=== PATIENT | female | born 1960 | race Caucasian/White ===

== ENCOUNTER 2024-01-14 21:23 | Emergency (ER) | payer MEDICARE, BC, SELFPAY ==
[2024-01-14 21:29] VITALS: BP 166/77; PULSE 94; TEMP 36.3; O2SAT 97; BMI 35.9
--- NOTE | 2024-01-14 21:41 | ED.GENADULT ---
HPI - General Adult General Date Seen: 01/14/24 Chief complaint: Chest Pain Stated complaint: Tightness in her chest Time Seen by Provider: 01/14/24 21:41 History of Present Illness HPI narrative: Pleasant 63-year-old female accompanied to the ER larry by her for evaluation of substernal chest pain and burning. She says she is generally healthy and does not have any known past medical history, but her also notes that she has not seen a doctor for a checkup in more than 2 decades. She does not take any medications. No supplements. No allergies. Nonsmoker. She has been experiencing chest discomfort that started this afternoon around 1:00 p.m. while she was at work. She does note that she has of a lot of stress at work today because her sister (co-worker) is out and her is preparing for a work related Trip. She was dealing with some on [employer] people as well. She did not eat lunch. At roughly 1:00 p.m. her chest started bothering her and felt achy and somewhat Freida. She is not really sure how long it lasted this afternoon but it was definitely gone before she went for a walk around 430. She started having recurring burning achy chest discomfort that started roughly around 7:00 p.m. around the time she was about to or starting to eat dinner. It got worse after dinner. It is now more bothersome. It is located in the center of her chest. Does not radiate down her arms or to her back or to her abdomen. No other symptoms. No shortness of breath. No palpitations. No nausea. No syncope. She also notes that she feels very anxious and she wonders if she might be having a panic attack. She is also worried because she had a friend scientology who recently had a heart attack. She is also worried because she has noted a painful lump on her right breast for the past couple of months ever since she bumped it. She has an appointment to see a doctor for that on Thursday. This would be her 1st doctor's appointment in quite a few years. No recent leg swelling. No recent travel. She has no known history of hypertension but blood pressure is elevated here. She has not been check for cholesterol. No history of DVT PE. No history of cancer. Related Data Home Medications Medication Instructions Recorded Confirmed No Known Home Medications 01/14/24 01/14/24 Allergies Allergy/AdvReac Type Severity Reaction Status Date / Time No Known Drug Allergies Allergy Verified 01/14/24 21:29 [facility] Social History Smoking Status: Never smoker How often do you have a drink containing alcohol: never AUDIT-C Alcohol total score: 0 Non-prescribed substance use: denies use Exam Narrative: Exam Narrative: Constitutional: Appears well-developed and well-nourished. Alert. Conversant but anxious. Non toxic. HENT: Head: Atraumatic. Nose: Nose normal. Mouth/Throat: Oral mucosa is clear and moist. no trismus. Pharynx normal. Tonsils symmetric. No tonsillar enlargement, erythema, or exudate. Eyes: Conjunctivae normal. EOM normal. Pupils equal, round, and reactive to light. No scleral icterus. Neck: Normal range of motion. Neck supple. No tracheal deviation present. No JVD Cardiovascular: Normal rate, regular rhythm. No gallop. No friction rub. No murmur heard. Symmetric radial and PT artery pulses Pulmonary/Chest: Effort normal. No stridor. No respiratory distress. No wheezes. No rales. No rhonchi . No tenderness. Abdominal: Soft. Bowel sounds normal. No distension. No mass. No tenderness. No rebound. No guarding. Breast: Patient does have a roughly 2 x 3 cm area of firm tissue on the right upper lateral quadrant of her breast. No surrounding erythema. No puckering of the skin Musculoskeletal: RUE: Normal range of motion. No tenderness. No deformity LUE: Normal range of motion. No tenderness. No deformity RLE: Normal range of motion. No edema. No tenderness. No deformity LLE: Normal range of motion. No edema. No tenderness. No deformity Lymph: No cervical adenopathy. Neurological: Alert and oriented to person, place, and time. Normal strength. CN II-VII intact. No sensory deficit. GCS eye subscore is 4. GCS verbal subscore is 5. GCS motor subscore is 6. Normal coordination Skin: Skin is warm and dry. No rash noted. No pallor. Normal capillary refill. Psychiatric: Normal mood. Normal affect. Const: Vital Signs, click to edit/add: Vital Signs - 24 hr 01/14/24 21:29 01/14/24 22:27 01/14/24 22:31 Temperature 97.4 F L Pulse Rate 85 87 Pulse Rate [Pulse Oximeter] 94 Respiratory Rate 16 16 Blood Pressure 154/89 H 142/84 H Blood Pressure [Ri ght Upper Arm] 166/77 H Pulse Oximetry 97 98 94 Oxygen Delivery Me thod Room Air 01/14/24 23:02 01/14/24 23:32 01/15/24 00:01 Temperature Pulse Rate 78 83 78 Pulse Rate [Pulse Oximeter] Respiratory Rate 16 16 16 Blood Pressure 156/81 H 153/82 H 145/79 H Blood Pressure [Ri ght Upper Arm] Pulse Oximetry 98 95 96 Oxygen Delivery Me thod 01/15/24 00:01 01/15/24 00:32 01/15/24 01:01 Temperature Pulse Rate 78 83 72 Pulse Rate [Pulse Oximeter] Respiratory Rate 18 16 16 Blood Pressure 145/79 H 133/77 137/72 Blood Pressure [Ri ght Upper Arm] Pulse Oximetry 96 96 98 Oxygen Delivery Me thod Course Course ED Course: Recheck-feeling better. Blood pressure down to 137/72. Much more relaxed and calm. Vital Signs Vital signs: Initial Vital Signs Temperature 97.4 F L 01/14/24 21:29 Temperature Source Temporal Artery Scan 01/14/24 21:29 Pulse Rate 94 01/14/24 21:29 Pulse Rhythm Regular 01/14/24 21:29 Blood Pressure 166/77 H 01/14/24 21:29 Blood Pressure Mean 106 H 01/14/24 21:29 Blood Pressure Position Sitting 01/14/24 21:29 Pulse Oximetry 97 01/14/24 21:29 Oxygen Delivery Method Room Air 01/14/24 21:29 Vital Signs Temperature 97.4 F L 01/14/24 21:29 Pulse Rate 94 01/14/24 21:29 Blood Pressure 166/77 H 01/14/24 21:29 Pulse Oximetry 97 01/14/24 21:29 Oxygen Delivery Method Room Air 01/14/24 21:29 Temperature 97.4 F L 01/14/24 21:29 Pulse Rate 72 01/15/24 01:01 Respiratory Rate 16 01/15/24 01:01 Blood Pressure 137/72 01/15/24 01:01 Pulse Oximetry 98 01/15/24 01:01 Oxygen Delivery Method Room Air 03/14/24 21:29 Medications Administered Medications: Generic Name Dose Route Start Last Admin Trade Name Denys PRN Reason Stop Dose Admin Nitroglycerin 0.4 mg 01/14/24 22:14 01/14/24 22:31 Nitroglycerin 0.4 Mg Tab.Subl SUBLINGUAL 0.4 mg Q5M PRN Administration Discontinued Medications Generic Name Dose Route Start Last Admin Trade Name Denys PRN Reason Stop Dose Admin Aspirin 162 mg 01/14/24 21:46 01/14/24 22:30 Aspirin 81 Mg Tab.Chew PO 01/14/24 21:47 162 mg ONCE ONE Administration Sodium Chloride 1,000 mls @ 1,000 mls/hr 01/14/24 23:24 01/14/24 23:27 0.9 % Sodium Chloride 1000 Ml IV 01/15/24 00:23 Infused .Q1H SOLA Infusion Lorazepam 1 mg 01/14/24 22:14 01/14/24 22:30 Lorazepam 2 Mg/Ml Inj IVP 01/14/24 22:15 1 mg ONCE ONE Administration Medical Decision Making [facility] Narrative Medical decision making narrative: This patient presents to the ER today for evaluation of chest pain. Differential was broad. No evidence of palpitations, syncope or other cardiac dysrhythmia. We considered possible ACS, however workup with EKG and troponin is negative. HEART score is 1. Given time since onset of symptoms, we did obtain 2 hour delta enzymes which are both normal. I do not think the patient needs to be admitted for further sets of enzymes. EKG shows no evidence for pericarditis. Clinical presentation not suggestive of myocarditis. Chest x-ray shows no evidence for pneumonia, pneumothorax, pulmonary edema, pleural effusion, rib fracture, cardiomegaly. Mediastinum is normal on the x-ray. The patient has no ripping or tearing pain through to the back and has symmetric pulses on exam, no other acute neuro findings so I doubt aortic dissection. Risk of radiation and contrast exposure would outweigh the benefit of CT angiogram. We considered PE for this patient. D-dimer is normal. No wheezing or bronchospasm to suggest COPD/asthma. No signs of chest wall cellulitis, shingles, injury. With reasonable clinical confidence, I think the patient is safe for outpatient follow up. Discussed return precautions. Questions answered. Patient voices comfort with the plan. Incidentally she mentioned to me that she has had a firm area in her right upper outer breast for the past couple of months. She thinks is probably a bruise because she did bump that area. She has an appointment to see a doctor on Thursday for that and I advised her to keep that appointment. She may need a mammogram and further workup for that breast lump. Recommend outpatient follow-up for her hypertension and to get other risk factor evaluation. Lab Data Labs: Lab Results 01/14/24 01/15/24 Range/Units 22:18 00:20 WBC 8.04 (4.50-11.00) K/uL RBC 4.55 (4.00-5.20) m/uL Hgb 13.5 (12.0-16.0) gm/dL Hct 41.1 (33.0-51.0) % MCV 90 (80-100) fL MCH 30 (26-34) pg MCHC 33 (32-36) gm/dL RDW Coeff of Edith 13.1 (11.5-15.5) % Plt Count 263 (140-440) K/uL Neut % (Auto) 73.9 H (42.0-72.0) % Lymph % (Auto) 17.5 L (20-44) % [place]orte % (Auto) 6.2 (0.0-11.0) % Eos % (Auto) 1.7 (0.0-7.0) % Baso % (Auto) 0.6 (0.0-3.0) % Neut # (Auto) 5.90 (1.7-7.0) K/uL Lymph # (Auto) 1.40 (0.90-2.90) K/uL [place] # (Auto) 0.50 (0.00-0.90) K/UL Eos # (Auto) 0.14 (0.00-0.50) K/uL Baso # (Auto) 0.05 (0.00-0.30) K/uL Abs Immat Gran (auto) 0.01 (0.00-0.30) K/uL Imm/Tot Granulo (auto) 0.1 % D-Dimer Quant (PE/DVT) 0.22 (0.00-0.50) ug/ml Sodium 140 (135-149) mmol/L Potassium 3.3 L (3.6-5.1) mmol/L Chloride 104 (96-114) mmol/L Carbon Dioxide 29 (20-32) mmol/L Anion Gap 7 (7-15) mEq/L BUN 20 (7-30) mg/dL Creatinine 0.8 (0.5-1.5) mg/dL Estimated Creat Clear 60.65 Estimated GFR 82 ml/min Glucose 137 H (60-115) mg/dL Calcium 9.6 (8.4-10.6) mg/dL Troponin I < 0.01 L < 0.01 L (0.01-0.04) ng/mL Imaging Data Chest x-ray: Attestation: I have reviewed the pertinent imaging results. Radiologist's impression: IMPRESSION: Patchy right lower lobe airspace opacity could represent early pneumonia in the correct clinical setting. ECG Data Attestation: I personally reviewed and interpreted this ECG as follows: Interpretation: Normal sinus rhythm rate 82 ND 166. No pathologic delta waves. QRS axis normal axis. No Q-waves. ST segment/T wave: No ST segment elevation or depression. Nonspecific T-wave flattening in lead 3, AVF, V1 QTc: 408 Discharge Plan Discharge Clinical Impression: Chest pain Patient Disposition: Home, Self-Care Condition: Stable Instructions: Chest Pain (DC) Additional Instructions: As we discussed, please follow-up with her doctor on Thursday for recheck. Talk to your doctor about your chest pain. Ask your doctor to arrange a stress test for your heart. Ask them to recheck your blood pressure. If it is still elevated, you may need to start some blood pressure medications. In the meantime, if you have any worsening episodes of chest pain or more frequent episodes of chest pain, or any other problems, come back to the emergency department right away to be rechecked. Prescriptions: No Action No Known Home Medications Follow Up/Referrals: Provider,Not a Local [Primary Care Provider] - Stand Alone Forms: iRewardChart Info Instructions
--- NOTE | 2024-01-14 21:46 | XR_ITS ---
Patient: JULIANA KOTHARI Facility:?[facility] Patient ID:?[id number] Site Patient ID:?[id number]. Site :?1960 Study:?XRay-Chest 2 VIEWS-01/14/2024 11:06:17 PM Ordering Physician:AMY Final Report: INDICATION: Chest tightness. TECHNIQUE: Chest 2 views. COMPARISON: None. FINDINGS: Cardiovascular and mediastinum: Heart size and vasculature are normal in caliber and appearance. Lungs and pleural spaces: Patchy right lower lobe airspace opacity. The remainder of the lungs are clear. No pleural effusion or pneumothorax. Bones and soft tissues: Unremarkable for age. IMPRESSION: Patchy right lower lobe airspace opacity could represent early pneumonia in the correct clinical setting. Dictated by Cezar Leong MD @ 01/14/2024 11:44:32 PM Signed by:?Cezar Leong MD @01/14/2024 11:44:32 PM (Electronic Signature)
[2024-01-14] MEDS: 0.9 % SODIUM CHLORIDE 1000 ml 1,000 ML IV (22:26)
[2024-01-14 22:27] VITALS: BP 154/89; PULSE 85; RESP 16; O2SAT 98
[2024-01-14] MEDS: LORazepam 2 MG/ML inj 1 MG IVP (22:30)
[2024-01-14] MEDS: ASPIRIN 81 MG TAB.CHEW 162 MG PO (22:30)
[2024-01-14 22:31] VITALS: BP 142/84; PULSE 87; RESP 16; O2SAT 94
[2024-01-14] MEDS: NITROGLYCERIN 0.4 MG TAB.SUBL SUBLINGUAL (22:31)
[2024-01-14 23:02] VITALS: BP 156/81; PULSE 78; RESP 16; O2SAT 98
[2024-01-14 23:26] LABS: Basophils Absolute Auto 0.05 K/uL (0.00-0.30); Basophils Percent Auto 0.6 % (0.0-3.0); Eosinophils Absolute Auto 0.14 K/uL (0.00-0.50); Eosinophils Percent Auto 1.7 % (0.0-7.0); Hematocrit 41.1 % (33.0-51.0); Hemoglobin* 13.5 gm/dL (12.0-16.0); Immature Granulocytes Abs Auto 0.01 K/uL (0.00-0.30); Immature Granulocytes Pct Auto 0.1 %; Lymphocytes Percent Auto 17.5 % (20-44); Mean Corpuscular HGB Conc 33 gm/dL (32-36); Mean Corpuscular Hemoglobin 30 pg (26-34); Mean Corpuscular Volume 90 fL (80-100); Monocytes Percent Auto 6.2 % (0.0-11.0); Neutrophils Percent Auto 73.9 % (42.0-72.0); Platelet Count* 263 K/uL (140-440); RDW Coefficient of Variation % 13.1 % (11.5-15.5); Red Blood Count 4.55 m/uL (4.00-5.20); White Blood Count* 8.04 K/uL (4.50-11.00)
[2024-01-14 23:28] LABS: Slide Review Reflex No
[2024-01-14 23:32] VITALS: BP 153/82; PULSE 83; RESP 16; O2SAT 95
[2024-01-14 23:36] LABS: Chloride* 104 mmol/L (96-114); Potassium* 3.3 mmol/L (3.6-5.1); Sodium* 140 mmol/L (135-149)
[2024-01-14 23:39] LABS: Anion Gap 7 mEq/L (7-15); Carbon Dioxide* 29 mmol/L (20-32); Creatinine* 0.8 mg/dL (0.5-1.5); Est. Creatinine Clearance* 60.65; Estimated Glomerular Filt Rate 82 ml/min
[2024-01-14 23:40] LABS: Blood Urea Nitrogen* 20 mg/dL (7-30); Calcium* 9.6 mg/dL (8.4-10.6); Glucose* 137 mg/dL (60-115)
[2024-01-14 23:44] LABS: D Dimer Quantitative* 0.22 ug/ml (0.00-0.50)
[2024-01-14 23:55] LABS: Troponin I* < 0.01 ng/mL (0.01-0.04)
[2024-01-15 00:01] VITALS: BP 145/79; PULSE 78; RESP 16; RESP 18; O2SAT 96
[2024-01-15 00:32] VITALS: BP 133/77; PULSE 83; RESP 16; O2SAT 96
[2024-01-15 00:54] LABS: Troponin I* < 0.01 ng/mL (0.01-0.04)
[2024-01-15 01:01] VITALS: BP 137/72; PULSE 72; RESP 16; O2SAT 98
== END 2024-01-15 01:24 | disposition home or self-care (01) ==
PROVIDERS: Emergency Provider Emergency Medicine
DX: R07.9 Chest pain, unspecified (principal)
CPT/HCPCS: 36415; 71046; 80048; 84484; 85025; 85379; 93005; 96374; 99284; 99285; A9270; J2060; J7030

== ENCOUNTER 2024-02-05 07:55 | Outpatient (CLI) | payer MEDICARE, BC, SELFPAY ==
--- NOTE | 2024-02-05 08:15 | US_ITS ---
Patient: JULIANA KOTHARI Facility:?[facility] Patient ID:?[id number] Site Patient ID:?[id number]. Site :?1960 Study:?US-Breast Procedure DR HANSON TO READ-02/05/2024 8:47:50 AM Ordering Physician:?DESTINY GARCIA Final Report: ULTRASOUND-GUIDED BREAST BIOPSY AND POST-BIOPSY DIGITAL MAMMOGRAM FOR BIOPSY MARKER PLACEMENT CLINICAL HISTORY: Indeterminate solid and cystic lesion. COMPARISON STUDIES: 01/19/2024. TECHNIQUE: Real-time ultrasound with image documentation was used for targeting the breast lesion. Core biopsy specimens were obtained using an automated gun with a 18- gauge biopsy needle. Post-biopsy CC and ML digital mammograms were obtained to document position of the biopsy marker. CONSENT and TIME OUT: The procedure, risks, and alternatives were explained to the patient and a consent was signed. [place] Protocol was followed including pre-procedure verification that relevant information/documentation was available, reviewed and properly matched to the patient; consent accurate and complete; and equipment and supplies available. Time Out was conducted just prior to starting procedure to verify the four required elements: patient identity, correct side/site marked (if applicable), procedure, relevant images/results properly labeled and displayed (if applicable). PROCEDURE: The patient was positioned supine on the ultrasound table. The breast was prepped with ChloraPrep. 8 cc of 1 percent lidocaine used for local anesthesia. Core samples were obtained. A sterile metal biopsy clip was placed percutaneously to katheryn the lesion position within the breast. The specimens were placed in 10% formalin and sent to the pathology department. Pressure was held on the biopsy site until all bleeding subsided. The skin incision was closed with Steri-Strips. An ice pack was positioned over the biopsy site. Post-biopsy instructions were reviewed with the patient, and a written copy was given to her. LATERALITY: Right breast. LESION: Solid and cystic mass measuring 4.9 x 3.1 x 3.2 cm at 10 o`clock 4 cm from the nipple. SUSPICION FOR MALIGNANCY: Intermediate. NUMBER OF SAMPLES: 6. BIOPSY CLIP SHAPE: Oval. PROXIMITY OF CLIP TO TARGET: Within the solid portion of the lesion. IMPRESSION: Ultrasound-guided breast biopsy. When the pathology report is available, an addendum to this report will be made. 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 This is concordant. This lesion has p63 positivity which is generally sensitive for metaplastic breast carcinoma. Surgical referral recommended. This is concordant. Dictated by: Fidencio Hanson MD @02/10/2024 8:25:15 AM / NORM:jj Signed by:?Fidencio Hanson MD @02/10/2024 12:07:12 PM (Electronic Signature)
--- NOTE | 2024-02-05 09:00 | MM_ITS ---
Patient: JULIANA KOTHARI Facility:?[facility] Patient ID:?[id number] Site Patient ID:?[id number]. Site :?1960 Study:?XRay-Breast Right 2D post clip placement-02/05/2024 8:57:40 AM Ordering Physician:key Final Report: PLEASE SEE RIGHT BREAST ULTRASOUND-GUIDED BIOPSY OF SAME DAY. CRL:mak JUAN PABLO/Dictated by: Fidencio Patel MD @ 02/05/2024 1:10:00 PM Signed by:?Fidencio Patel MD @02/05/2024 3:12:23 PM (Electronic Signature)
--- NOTE | 2024-02-09 15:01 | ONC.NURNOTE ---
Reviewed pathology results with pt via phone. BNN to review with Dr. Patel in AM and update pt with next steps; pt is emotional and verbalizes understanding.
== END 2024-02-05 07:56 | disposition home or self-care (01) ==
LOC: US 07:56
PROVIDERS: Visit Provider Student in an Organized Health Care Education/Training Program
DX: N60.01 Solitary cyst of right breast (principal); C50.911 Malignant neoplasm of unspecified site of right female breast; R92.8 Other abnormal and inconclusive findings on diagnostic imaging of breast
CPT/HCPCS: 19083; 77065; 88305; 88341; 88342; 88360; A4648; A4649

== ENCOUNTER 2024-03-17 09:30 | Emergency (ER) | payer MEDICARE, BC, SELFPAY ==
[2024-03-17 09:40] VITALS: BP 177/95; PULSE 71; RESP 20; TEMP 35.9; O2SAT 98; BMI 27.9
--- NOTE | 2024-03-17 09:52 | CT_ITS ---
Patient: JULIANA KOTHARI Facility:?[facility] Patient ID:?[id number] Site Patient ID:?[id number]. Site :?1960 Study:?CT-Abdomen/Pelvis W/ 98CC ISOVUE 370-03/17/2024 11:17:46 AM Ordering Physician:ELEUTERIO Final Report: INDICATION: Left-sided abdominal pain TECHNIQUE: CT of the abdomen and pelvis was obtained with 98 mL of Isovue 370 intravenous contrast. Please note that all CT scans at this facility use dose modulation, iterative reconstruction, and/or weight-based dosing when appropriate to reduce radiation dose to as low as reasonably achievable. COMPARISON: None. FINDINGS: Lower thorax: 6.0 x 4.2 centimeter rim enhancing right breast collection (2/6) with associated metallic marker. Liver and biliary tree: Subcentimeter hypoattenuating lesions are too small to characterize and are favored to represent cysts. Gallbladder: Cholelithiasis. Spleen: Normal. Pancreas: Normal. Adrenal glands: Normal. Kidneys and ureters: Moderate left hydroureteronephrosis with 3 millimeter obstructing calculus at the left ureterovesical junction (2/149). Moderate left perinephric fat stranding. Gastrointestinal tract: Moderate descending and sigmoid colonic diverticulosis without CT evidence of acute diverticulitis. Normal appendix. No evidence of bowel obstruction. Small hiatal hernia. Peritoneal cavity: Normal. Bladder: Normal. Pelvic organs: Fibroid uterus. Vasculature: Mild calcification. Lymph nodes: Normal. Abdominal wall: Trace fat containing periumbilical hernia. Musculoskeletal: Mild multilevel degenerative changes. IMPRESSION: 1. Moderate left hydroureteronephrosis with 3 millimeter obstructing calculus at the left ureterovesical junction. 2. 6.0 x 4.2 centimeter rim enhancing right breast collection with associated metallic markers; this likely corresponds to reported malignancy on biopsy 02/05/2024. 3. Fibroid uterus. Consider pelvic ultrasound for further evaluation as clinically indicated. Please note that all CT scans at this facility use dose modulation, iterative reconstruction, and/or weight-based dosing when appropriate to reduce radiation dose to as low as reasonably achievable. Dictated by Navid Cote MD @ 03/17/2024 11:31:02 AM Signed by:?Navid Cote MD @03/17/2024 11:31:02 AM (Electronic Signature)
--- NOTE | 2024-03-17 10:02 | ED.GENADULT ---
HPI - General Adult General Date Seen: 03/17/24 Chief complaint: Abdominal Pain Stated complaint: abdominal pain/ tight chest Time Seen by Provider: 03/17/24 09:41 Source: patient Mode of arrival: ambulatory Limitations: no limitations History of Present Illness HPI narrative: Patient is a 63-year-old female presenting to the emergency department for left-sided abdominal pain and chest pain. She states she was doing well this morning but then as the day was going on she noticed sudden sharp left-sided abdominal pain. Pain is not improved at all. She is not taking anything for pain yet. Had a bowel movement this morning that was normal and has no previous abdominal surgeries. This morning she also ate and drink without issues. She is also complaining about a band of tightness in her chest just below her breasts the go all way across. She states she has had this pain for several months now and it does not seem much different today. Initially was not nausea but while speaking to a she suddenly became very nauseated. Has not had any emesis yet. Denies fevers, chills, sick contacts, weakness, numbness, headache, vision changes. Does have some lightheadedness. Did get diagnosed with right-sided breast cancer it was start treatment in April. They also saw an abnormality on her uterus. Related Data Previous Rx's Medication Instructions Recorded ketorolac 10 mg tablet 10 mg PO Q8H #15 tabs 03/17/24 ondansetron 4 mg disintegrating 4 mg PO Q6H #20 tabs 03/17/24 tablet oxycodone 5 mg tablet 5 mg PO Q6H PRN pain #12 tabs 03/17/24 tamsulosin 0.4 mg capsule (Flomax) 0.4 mg PO DAILY #14 caps 03/17/24 Allergies Allergy/AdvReac Type Severity Reaction Status Date / Time No Known Drug Allergies Allergy Verified 03/17/24 11:08 Review of Systems Status of ROS: Reports: 10 or more systems reviewed and unremarkable except as noted in History and below PFSH PFSH Social History Smoking Status: Never smoker How often do you have a drink containing alcohol: never AUDIT-C Alcohol total score: 0 Non-prescribed substance use: denies use Exam Narrative: Exam Narrative: Const: Well-nourished, Well-developed, in mother distress Eyes: PERRL, no conjunctival injection, and symmetrical lids HENT: Atraumatic external nose and ears. Moist mucous membranes. Neck: Symmetric, trachea midline, No thyromegaly. CVS: RRR, No murmurs or gallops. Peripheral pulses 2+ and equal in all extremities RESP: Unlabored respiratory effort. Clear to auscultation bilaterally. GI: Nontender/Nondistended, No rebound or guarding. MSK:Extremities w/o deformity, Normal Active ROM, no chest tenderness Skin: Warm, Dry. No rashes or lesions. Neuro: Normal Muscle tone, No focal neurological deficits. Psych: Awake, Alert, & Oriented x3. Appropriate mood and affect. Const: Vital Signs, click to edit/add: Vital Signs - 24 hr 03/17/24 09:40 Temperature 96.7 F L Pulse Rate [Left P ulse Oximeter] 71 Respiratory Rate 20 Blood Pressure [Le ft Upper Arm] 177/95 H Pulse Oximetry 98 Oxygen Delivery Me thod Room Air Course Vital Signs Vital signs: Initial Vital Signs Temperature 96.7 F L 03/17/24 09:40 Temperature Source Temporal Artery Scan 03/17/24 09:40 Pulse Rate 71 03/17/24 09:40 Pulse Rhythm Regular 03/17/24 09:40 Pulse Strength 3+ Normal 03/17/24 09:40 Respiratory Rate 20 03/17/24 09:40 Blood Pressure 177/95 H 03/17/24 09:40 Blood Pressure Mean 122 H 03/17/24 09:40 Blood Pressure Position Sitting 03/17/24 09:40 Pulse Oximetry 98 03/17/24 09:40 Oxygen Delivery Method Room Air 03/17/24 09:40 Vital Signs Temperature 96.7 F L 03/17/24 09:40 Pulse Rate 71 03/17/24 09:40 Respiratory Rate 20 03/17/24 09:40 Blood Pressure 177/95 H 03/17/24 09:40 Pulse Oximetry 98 03/17/24 09:40 Oxygen Delivery Method Room Air 03/17/24 09:40 Temperature 96.7 F L 03/17/24 09:40 Pulse Rate 71 03/17/24 09:40 Respiratory Rate 20 03/17/24 09:40 Blood Pressure 177/95 H 03/17/24 09:40 Pulse Oximetry 98 03/17/24 09:40 Oxygen Delivery Method Room Air 03/17/24 09:40 Medications Administered Medications: Discontinued Medications Generic Name Dose Route Start Last Admin Trade Name Denys PRN Reason Stop Dose Admin Ketorolac Tromethamine 15 mg 03/17/24 09:52 03/17/24 10:17 Ketorolac 15 Mg/Ml Inj IVP 03/17/24 09:53 15 mg ONCE ONE Administration Ondansetron HCl 4 mg 03/17/24 09:52 03/17/24 10:17 Ondansetron 2 Mg/Ml Inj IVP 03/17/24 09:53 4 mg ONCE ONE Administration Medical Decision Making MDM Narrative Medical decision making narrative: Patient is a 63-year-old female presenting for abdominal pain and chest pain. His chest pain is been going on for a while but we will do an EKG and troponin. She was seen here 2 months ago for this chest pain and was discharged at that time pain has been consistent since then. For the abdominal pain differential includes diverticulitis, nephrolithiasis, viral GI infection. Seems unlikely to be in SBO as she has no previous abdominal surgeries in have a normal bowel movement this morning. Will do a CT scan to better evaluate this. Zofran given for nausea. Toradol given for pain. Will also order a CBC, CMP, urinalysis, lipase. Toradol initially helped with pain with then pain started worsening and morphine was given. After this pain improved significantly. She is now tolerable she states. Nausea has improved with the Zofran. CBC, CMP showed no concerning abnormalities. Troponin within normal limits. EKG shows no concerning findings. Urinalysis shows blood in the urine but no clear signs of a UTI. There is leukocyte esterase and some bacteria but no white blood cells or nitrites. CT returned showing moderate left hydroureteronephrosis with a 3 mm obstructing stone in the left ureterovesical junction. This is consistent with the patient's presentation. This time she is doing well and since there is no obvious signs of infected kidney stone she will be discharged home. Do not believe we need to repeat troponin as this chest pain is been going on for several months. Will prescribe her Flomax, oxycodone, Toradol, Zofran. She is agreeable to this plan. Lab Data Labs: Lab Results 03/17/24 03/17/24 03/17/24 Range/Units 09:52 09:55 10:03 WBC 6.05 (4.50-11.00) K/uL RBC 4.61 (4.00-5.20) m/uL Hgb 13.8 (12.0-16.0) gm/dL Hct 41.8 (33.0-51.0) % MCV 91 (80-100) fL MCH 30 (26-34) pg MCHC 33 (32-36) gm/dL RDW Coeff of Edith 13.6 (11.5-15.5) % Plt Count 300 (140-440) K/uL Neut % (Auto) 68.5 (42.0-72.0) % Lymph % (Auto) 21.2 (20-44) % [place] % (Auto) 7.1 (0.0-11.0) % Eos % (Auto) 2.5 (0.0-7.0) % Baso % (Auto) 0.7 (0.0-3.0) % Neut # (Auto) 4.15 (1.7-7.0) K/uL Lymph # (Auto) 1.28 (0.90-2.90) K/uL [place] # (Auto) 0.40 (0.00-0.90) K/UL Eos # (Auto) 0.15 (0.00-0.50) K/uL Baso # (Auto) 0.04 (0.00-0.30) K/uL Abs Immat Gran (auto) 0.00 (0.00-0.30) K/uL Imm/Tot Granulo (auto) 0.0 % Sodium 143 (135-149) mmol/L Potassium 3.3 L (3.6-5.1) mmol/L Chloride 106 (96-114) mmol/L Carbon Dioxide 28 (20-32) mmol/L Anion Gap 9 (7-15) mEq/L BUN 19 (7-30) mg/dL Creatinine 0.7 (0.5-1.5) mg/dL Estimated Creat Clear 62.69 Estimated GFR 96 ml/min Glucose 152 H (60-115) mg/dL Calcium 9.3 (8.4-10.6) mg/dL Total Bilirubin 1.0 (0.1-1.5) mg/dL AST 27 (12-35) U/L ALT 31 (4-35) U/L Alkaline Phosphatase 73 (40-150) U/L Total Protein 6.9 (6.0-8.3) g/dL Albumin 4.5 (3.3-5.0) g/dL Lipase 102 (23-300) U/L Urine Color Yellow (Yellow) Urine Appearance Clear (Clear) Urine pH 5.5 (5.0-8.5) Ur Specific [place] 1.025 (1.000-1.030) Urine Protein 1+ A (Negative) Urine Glucose (UA) Negative (Negative) Urine Ketones Trace A (Negative) Urine Blood 3+ A (Negative) Urine Nitrite Negative (Negative) Urine Bilirubin Negative (Negative) Urine Urobilinogen 0.2 (0.2-1.0) Ur Leukocyte Esterase 1+ A (Negative) Urine RBC 25-50 A (0-2) Urine WBC 0-2 (0-5) Urine WBC Clumps None (None) Ur Squamous Epith Cells Few (None-Few) Urine Bacteria Moderate A (None) Urine Yeast Few A (None) POC Troponin I 0.00 L (0.01-0.04) ng/ml Imaging Data CT scan abdomen and pelvis: Attestation: I have reviewed the pertinent imaging results. Radiologist's impression: 1. Moderate left hydroureteronephrosis with 3 millimeter obstructing calculus at the left ureterovesical junction. 2. 6.0 x 4.2 centimeter rim enhancing right breast collection with associated metallic markers; this likely corresponds to reported malignancy on biopsy 02/05/2024. 3. Fibroid uterus. Consider pelvic ultrasound for further evaluation as clinically indicated. Please note that all CT scans at this facility use dose modulation, iterative reconstruction, and/or weight-based dosing when appropriate to reduce radiation dose to as low as reasonably achievable. Dictated by Navid Cote MD @ 03/17/2024 11:31:02 AM ECG Data Attestation: I personally reviewed and interpreted this ECG as follows: Prior ECG tracings: available for review Interpretation: Normal sinus rhythm with rate of 71 beats per minute, normal intervals, normal axis, no ST or T-wave abnormalities. There does appear to be a new incomplete right bundle-branch block compared to previous EKG Discharge Plan Discharge Clinical Impression: Nephrolithiasis Patient Disposition: Home, Self-Care Condition: Improved Instructions: Kidney Stones (ED) Additional Instructions: Take all the prescribed medication as directed. Return to emergency department for any new worsening symptoms including signs of developing urinary tract infection or fevers. The stone should pass on its own hopefully within the next few days. If you do take the Toradol make sure not to take ibuprofen as they are the same class of drugs and can cause kidney issues if taking together consistently. Prescriptions: New ondansetron 4 mg tablet,disintegrating 4 mg PO Q6H Qty: 20 0RF oxycodone 5 mg tablet 5 mg PO Q6H PRN (Reason: pain) Qty: 12 0RF tamsulosin [Flomax] 0.4 mg capsule 0.4 mg PO DAILY Qty: 14 3RF ketorolac 10 mg tablet 10 mg PO Q8H Qty: 15 0RF Rx Instructions: maximum total duration of 5 days from all oral, intranasal, or parenteral formulations Follow Up/Referrals: Provider,Not a Local [Primary Care Provider] - Stand Alone Forms: [facility] Info Instructions
[2024-03-17 10:06] LABS: Appearance Urine Clear (Clear); Bilirubin Urine Negative (Negative); Blood Urine 3+ (Negative); Color Urine Yellow (Yellow); Glucose Urine Negative (Negative); Ketones Urine Trace (Negative); Leukocyte Esterase Urine 1+ (Negative); Nitrite Urine Negative (Negative); Protein Urine 1+ (Negative); Specific Gravity Urine 1.025 (1.000-1.030); Urobilinogen Urine 0.2 (0.2-1.0); pH Urine 5.5 (5.0-8.5)
[2024-03-17 10:12] LABS: Basophils Absolute Auto 0.04 K/uL (0.00-0.30); Basophils Percent Auto 0.7 % (0.0-3.0); Eosinophils Absolute Auto 0.15 K/uL (0.00-0.50); Eosinophils Percent Auto 2.5 % (0.0-7.0); Hematocrit 41.8 % (33.0-51.0); Hemoglobin* 13.8 gm/dL (12.0-16.0); Lymphocytes Absolute Auto 1.28 K/uL (0.90-2.90); Lymphocytes Percent Auto 21.2 % (20-44); Mean Corpuscular HGB Conc 33 gm/dL (32-36); Mean Corpuscular Hemoglobin 30 pg (26-34); Mean Corpuscular Volume 91 fL (80-100); Monocytes Percent Auto 7.1 % (0.0-11.0); Neutrophils Absolute Auto 4.15 K/uL (1.7-7.0); Neutrophils Percent Auto 68.5 % (42.0-72.0); Platelet Count* 300 K/uL (140-440); RDW Coefficient of Variation % 13.6 % (11.5-15.5); Red Blood Count 4.61 m/uL (4.00-5.20); White Blood Count* 6.05 K/uL (4.50-11.00)
[2024-03-17 10:16] LABS: RBC Urine 25-50 (0-2); WBC Urine 0-2 (0-5)
[2024-03-17 10:17] LABS: Bacteria Urine Moderate; Squamous Epithelial Cell Urine Few (None-Few)
[2024-03-17] MEDS: KETOROLAC 15 MG/ML inj IVP (10:17)
[2024-03-17] MEDS: ONDANSETRON 2 MG/ML inj 4 MG IVP (10:17)
[2024-03-17 10:18] LABS: Slide Review Reflex No
[2024-03-17 10:34] LABS: Chloride* 106 mmol/L (96-114)
[2024-03-17 10:35] LABS: Albumin* 4.5 g/dL (3.3-5.0); Potassium* 3.3 mmol/L (3.6-5.1); Sodium* 143 mmol/L (135-149)
[2024-03-17 10:37] LABS: Creatinine* 0.7 mg/dL (0.5-1.5); Est. Creatinine Clearance* 62.69; Estimated Glomerular Filt Rate 96 ml/min
[2024-03-17 10:38] LABS: Alanine Aminotransferase* 31 U/L (4-35); Alkaline Phosphatase* 73 U/L (40-150); Anion Gap 9 mEq/L (7-15); Aspartate Amino Transferase* 27 U/L (12-35); Blood Urea Nitrogen* 19 mg/dL (7-30); Calcium* 9.3 mg/dL (8.4-10.6); Carbon Dioxide* 28 mmol/L (20-32); Glucose* 152 mg/dL (60-115); Lipase* 102 U/L (23-300); Total Protein* 6.9 g/dL (6.0-8.3)
[2024-03-17 12:00] VITALS: BP 155/79; PULSE 88; RESP 16; O2SAT 98
== END 2024-03-17 12:52 | disposition home or self-care (01) ==
PROVIDERS: Emergency Provider Student in an Organized Health Care Education/Training Program
DX: N20.0 Calculus of kidney (principal)
CPT/HCPCS: 36415; 74177; 80053; 81001; 83690; 84484; 85025; 87086; 93005; 96374; 96375; 99283; 99284; 99285; J1885; J2405; Q9967

== ENCOUNTER 2024-04-04 07:00 | Outpatient (CLI) | payer MEDICARE, BC, SELFPAY ==
--- NOTE | 2024-04-04 07:15 | CRLHL7_ITS ---
For Patients: As a result of the Century Cures Act, medical imaging exams and procedure reports are released immediately into your electronic medical record. You may view this report before your referring provider. If you have questions, please contact your health care provider. INDICATION: Breast cancer. Evaluate for metastatic disease. COMPARISON: CT scan of the abdomen and pelvis dated 17 Mar 2024. TECHNIQUE: Pelvic MRI with T1, T2, and postcontrast images. Intravenous gadolinium administered. Findings : 6.5 x 5.6 x 4.3 cm fibroid in the posterior aspect of body of the uterus. 1.6 cm fibroid in the anterior aspect of the body of the uterus. The uterus is otherwise unremarkable. Thickening and heterogeneity of the endometrial stripe measuring 8 mm in thickness. Nabothian cysts in the cervix. Normal appearance of the ovaries. Mild bowel wall thickening and pericolonic edema involving the proximal sigmoid colon. No other pelvic masses or adenopathy. No other bony or soft tissue abnormalities identified. Impression : 1. Uterine fibroids. The uterus is otherwise unremarkable. 2. Thickening and heterogeneity of the endometrial stripe. In the absence of bleeding this is a nonspecific finding. 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 3. Normal appearance of the ovaries. 4. Mild bowel wall thickening and pericolonic edema involving the proximal sigmoid colon may represent a mild diverticulitis and is new. Dictated by Sebastien Urias MD @ 04/04/2024 4:16:59 PM (Electronically Signed)
== END 2024-04-04 07:01 | disposition home or self-care (01) ==
LOC: MRI 07:07
PROVIDERS: PCP Family Medicine; Visit Provider Internal Medicine Hematology & Oncology
DX: C50.911 Malignant neoplasm of unspecified site of right female breast (principal); D25.9 Leiomyoma of uterus, unspecified; R39.89 Other symptoms and signs involving the genitourinary system; N85.8 Other specified noninflammatory disorders of uterus
CPT/HCPCS: 72197; A9575

== ENCOUNTER 2024-05-27 09:55 | Outpatient (CLI) | payer MEDICARE, BC, SELFPAY ==
[2024-05-27] MEDS: PERFLUTREN LIPID MICROSPHERES 2 ML VIAL IV (10:57)
== END 2024-05-27 09:56 | disposition home or self-care (01) ==
LOC: RAD 09:55
PROVIDERS: PCP Family Medicine; Visit Provider Physician Assistant
DX: Z51.81 Encounter for therapeutic drug level monitoring (principal); Z79.899 Other long term (current) drug therapy; C50.912 Malignant neoplasm of unspecified site of left female breast
CPT/HCPCS: 93306

== ENCOUNTER 2024-05-30 08:30 | Outpatient (RCR) | payer MEDICARE, BC, SELFPAY ==
--- NOTE | 2024-03-25 15:47 | URNOTE ---
Request received for authorization for Palonosetron (J2469), Pembrolizumab (J9271), Paclitaxel (J9267), Carboplatin (J9045). Prior authorization is not required as services are based on medical necessity and follow Medicare guidelines.
--- NOTE | 2024-04-01 12:00 | ONC.NURNOTE ---
Coordination of Care - see Candy Miller APRN's note from 03/30 for situation/background. Mon 04/04 Dentist to confirm plan with patient Tues 04/05 Dental procedures Mon 04/18 Anticipated 1st Chemo, pending healing from dental procedures; orders moved and held. Original 04/06 1st Chemo appt cancelled.
--- NOTE | 2024-04-08 14:05 | ONC.NURNOTE ---
Addendum entered by Naa Lundberg 04/11/24 16:08: Per Dr. Perez, patient can cancel her ECHO in [place] for 04/14. We will plan to do it here locally prior to starting AC. Patient verbalizes understanding. Original Note: Call to patient to discuss plan of care. 1. Patient had all of her teeth extracted on 04/05. Overall, she is doing okay. She states it is difficult to talk. She is eating and drinking with no problems. She continues to take the prophylactic antibiotics. 2. Patient informed that Dr. Perez reviewed her MRI. No evidence of malignancy but she does have a large uterine fibroid. Our recommendation will be referral to gynecology. Patient requests this be done here in [place]. 3. Patient scheduled for chemotherapy teaching and baseline labs on 04/13. 4. Patient will start chemotherapy 04/18. 5. Patient questioning if she needs her ECHO done. It is currently scheduled for 04/14 in [place]. I explained that this likely could be delayed until closer to phase 2 of her treatment but I would review with Dr. Perez.
[2024-04-13 12:20] LABS: Basophils Absolute Auto 0.03 K/uL (0.00-0.30); Basophils Percent Auto 0.6 % (0.0-3.0); Eosinophils Absolute Auto 0.08 K/uL (0.00-0.50); Eosinophils Percent Auto 1.6 % (0.0-7.0); Hematocrit 41.1 % (33.0-51.0); Hemoglobin* 13.7 gm/dL (12.0-16.0); Lymphocytes Absolute Auto 1.13 K/uL (0.90-2.90); Mean Corpuscular HGB Conc 33 gm/dL (32-36); Mean Corpuscular Hemoglobin 30 pg (26-34); Mean Corpuscular Volume 90 fL (80-100); Monocytes Percent Auto 4.9 % (0.0-11.0); Neutrophils Absolute Auto 3.65 K/uL (1.7-7.0); Neutrophils Percent Auto 70.9 % (42.0-72.0); Platelet Count* 266 K/uL (140-440); RDW Coefficient of Variation % 13.1 % (11.5-15.5); Red Blood Count 4.59 m/uL (4.00-5.20); White Blood Count* 5.14 K/uL (4.50-11.00)
[2024-04-13 12:28] LABS: Slide Review Reflex No
[2024-04-13 12:35] LABS: Albumin* 4.7 g/dL (3.3-5.0); Chloride* 107 mmol/L (96-114); Potassium* 3.9 mmol/L (3.6-5.1); Sodium* 139 mmol/L (135-149)
[2024-04-13 12:37] LABS: Creatinine* 0.6 mg/dL (0.5-1.5); Est. Creatinine Clearance* 58.61; Estimated Glomerular Filt Rate 100 ml/min
[2024-04-13 12:38] LABS: Alanine Aminotransferase* 31 U/L (4-35); Alkaline Phosphatase* 74 U/L (40-150); Anion Gap 4 mEq/L (7-15); Aspartate Amino Transferase* 25 U/L (12-35); Blood Urea Nitrogen* 16 mg/dL (7-30); Calcium* 9.2 mg/dL (8.4-10.6); Carbon Dioxide* 28 mmol/L (20-32); Glucose* 106 mg/dL (60-115); Total Protein* 6.8 g/dL (6.0-8.3)
--- NOTE | 2024-04-13 13:31 | ONC.NURNOTE ---
I met with patient for chemotherapy teaching. The contents of the chemotherapy binder were reviewed. We reviewed side effects, what to report to her provider and how to reach her provider both during and after hours. Patient recently had all of her teeth extracted. She is surprised with how well she is able to eat but is quite overwhelmed by the emotional impact (her speech and appearance) this has had on her. Baseline labs are completed and patient verbalizes understanding for plans to begin chemotherapy 04/18.
[2024-04-18 09:25] VITALS: BP 131/80; PULSE 70; RESP 18; TEMP 36.3; O2SAT 98
[2024-04-18] MEDS: PEMBROLIZUMAB 200 MG, TUBING PRIMARY 1 EACH, In-line 0.2 micron filter set 1 EACH in 0.... 216 MG IVPB (09:56)
[2024-04-18] MEDS: dexAMETHasone 20 MG in 0.9 % SODIUM CHLORIDE 100 ml 100 ML 408 MG IVPB (10:28)
[2024-04-18] MEDS: PALONOSETRON 0.25 MG/5 ML inj IV (10:28)
[2024-04-18] MEDS: 0.9 % SODIUM CHLORIDE 250 ml IV (10:29)
[2024-04-18] MEDS: SODIUM CHLORIDE 0.9 % (FLUSH) 10 ML SYRINGE IVF (10:29)
[2024-04-18] MEDS: FAMOTIDINE 20 MG, diphenhydrAMINE 50 MG in 0.9 % SODIUM CHLORIDE 100 ml 100 ML 412 MG IVPB (10:51)
--- NOTE | 2024-04-22 13:35 | ONC.NURNOTE ---
Per email communication from Dr. Perez: Pt will be seen in [facility] in [place] on 05/03.? I have called and discussed with Nae so she is aware of the MRI result and the plan. ? We will need to hold her treatment until we have a plan as surgery may be needed before we continue with adj breast ca treatment.? Pt knows not to come for treatment in on Thursday, she will wait to hear from [place] about her appointment there. Appointments canceled. Will await further recommendations from [place]. ?
--- NOTE | 2024-05-04 13:37 | ONC.NURNOTE ---
Received clearance from [place] [facility] to resume chemotherapy. See note below. I spoke with patient and confirmed her appointment for 05/09 for her Day 8 labs, follow up and Taxol/Carbo. Patient verbalizes understanding. We took Ms. 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 ? She had some scarring that made it difficult to access her endometrial cavity, but we were able to see the left cornua, which is where the lesion was described on pelvic MRI. We removed a polyp, which appeared benign on frozen pathology. Benign endometrial polyps can be PET avid. We feel that she can continue with NACT for her breast cancer. We do not plan to treat her with IUD or any hormonal therapy.? ? If she does proceed to surgery, please have her see us back in [facility] surgery to discuss the possibility of a concurrent hysterectomy. With the difficult visualization and biopsy, it may be worth considering removal of the uterus for diagnostic certainty.? ? Please reach out to me or Dr. Rivera with questions. ? Thanks, ? Bere ? Bere Vega MD Pronouns: she/her/hers Fellow, Gynecologic Oncology? Pager:?[phone]
[2024-05-09 08:04] LABS: Basophils Percent Auto 0.9 % (0.0-3.0); Eosinophils Percent Auto 2.7 % (0.0-7.0); Hematocrit 40.5 % (33.0-51.0); Hemoglobin* 13.2 gm/dL (12.0-16.0); Immature Granulocytes Pct Auto 0.2 %; Lymphocytes Percent Auto 26.5 % (20-44); Mean Corpuscular HGB Conc 33 gm/dL (32-36); Mean Corpuscular Hemoglobin 30 pg (26-34); Mean Corpuscular Volume 91 fL (80-100); Neutrophils Percent Auto 62.7 % (42.0-72.0); Platelet Count* 287 K/uL (140-440); RDW Coefficient of Variation % 13.8 % (11.5-15.5); Red Blood Count 4.45 m/uL (4.00-5.20); White Blood Count* 4.45 K/uL (4.50-11.00)
[2024-05-09 08:15] LABS: Slide Review Reflex No
[2024-05-09 08:18] LABS: Chloride* 107 mmol/L (96-114)
[2024-05-09 08:19] LABS: Albumin* 4.1 g/dL (3.3-5.0); Potassium* 3.7 mmol/L (3.6-5.1); Sodium* 141 mmol/L (135-149)
[2024-05-09 08:21] LABS: Creatinine* 0.6 mg/dL (0.5-1.5); Est. Creatinine Clearance* 58.61; Estimated Glomerular Filt Rate 100 ml/min
[2024-05-09 08:22] LABS: Alanine Aminotransferase* 35 U/L (4-35); Alkaline Phosphatase* 82 U/L (40-150); Anion Gap 9 mEq/L (7-15); Aspartate Amino Transferase* 23 U/L (12-35); Bilirubin Total* 0.8 mg/dL (0.1-1.5); Blood Urea Nitrogen* 22 mg/dL (7-30); Calcium* 9.4 mg/dL (8.4-10.6); Carbon Dioxide* 25 mmol/L (20-32); Glucose* 135 mg/dL (60-115); Total Protein* 6.3 g/dL (6.0-8.3)
[2024-05-09] MEDS: 0.9 % SODIUM CHLORIDE 250 ml IV (09:51)
[2024-05-09] MEDS: PALONOSETRON 0.25 MG/5 ML inj IV (09:51)
[2024-05-09] MEDS: dexAMETHasone 20 MG in 0.9 % SODIUM CHLORIDE 100 ml 100 ML 420 MG IVPB (09:51)
[2024-05-09] MEDS: SODIUM CHLORIDE 0.9 % (FLUSH) 10 ML SYRINGE IVF (09:51)
[2024-05-09] MEDS: FAMOTIDINE 20 MG, diphenhydrAMINE 50 MG in 0.9 % SODIUM CHLORIDE 100 ml 100 ML 420 MG IVPB (10:10)
[2024-05-09 10:46] VITALS: BP 144/69; PULSE 81; O2SAT 96
[2024-05-09] MEDS: METHYLPREDNISOLONE SOD SUCC 62.5 MG/ML (125) 100 MG IVP (11:22)
[2024-05-09] MEDS: MAG HYDROX/ALUMINUM HYD/SIMETH 30 ML ORAL.SUSP 15 ML PO (11:22)
--- NOTE | 2024-05-09 11:28 | PC.NURSE ---
Addendum entered by Debi Avilez RN 05/09/24 13:19: Pt completed Taxol infusion without incident. Rates were as follows 70 cc/hour, 140 cc/hour, 210 cc/hour, and 280 cc/hour. Increased rate every 15 minutes as pt was tolerating infusion. Original Note: Pt present at [facility] for Cycle 1 Day 8 of TC+Pembro. Premeds given as ordered. Taxol started at 1034. RN went to check in on pt and her peripheral IV at 1045 and pt reported facial flushing. RN stopped infusion, assessed vital signs, and called Edie Gao APRN to assist and assess. As the Taxol was started soon after the completion of Benadryl/Pepcid infusion, it was decided that we wait 15 minutes and reassess. RN assessed Nae around 1105 and pt reported feeling tightness/nausea in her epigastric area and nasal stuffiness. Flushing resolved almost immediately after stopping Taxol. Discussed with TAWNY Irizarry who ordered Maalox and SoluMedrol. Both were given as ordered. Will allow 20 minutes and will reassess and if all symptoms resolved, will resume infusion at 70cc/hour (1/4 of initial rate) and slowly titrate up as pt tolerates.
[2024-05-09 11:48] VITALS: BP 166/83; PULSE 80; RESP 16; O2SAT 96
[2024-05-09 11:50] VITALS: BP 148/82
[2024-05-16 09:09] VITALS: BP 114/71; PULSE 84; RESP 16; TEMP 36; O2SAT 99
[2024-05-16 09:13] LABS: Basophils Percent Auto 1.2 % (0.0-3.0); Eosinophils Percent Auto 3.9 % (0.0-7.0); Hematocrit 40.2 % (33.0-51.0); Hemoglobin* 12.9 gm/dL (12.0-16.0); Immature Granulocytes Pct Auto 0.5 %; Lymphocytes Percent Auto 28.6 % (20-44); Mean Corpuscular HGB Conc 32 gm/dL (32-36); Mean Corpuscular Hemoglobin 29 pg (26-34); Mean Corpuscular Volume 92 fL (80-100); Monocytes Percent Auto 5.3 % (0.0-11.0); Neutrophils Percent Auto 60.5 % (42.0-72.0); Platelet Count* 244 K/uL (140-440); RDW Coefficient of Variation % 13.5 % (11.5-15.5); Red Blood Count 4.39 m/uL (4.00-5.20); Slide Review Reflex No; White Blood Count* 4.34 K/uL (4.50-11.00)
[2024-05-16 09:28] LABS: Albumin* 4.3 g/dL (3.3-5.0); Chloride* 105 mmol/L (96-114); Sodium* 139 mmol/L (135-149)
[2024-05-16 09:31] LABS: Alanine Aminotransferase* 47 U/L (4-35); Alkaline Phosphatase* 75 U/L (40-150); Anion Gap 6 mEq/L (7-15); Aspartate Amino Transferase* 28 U/L (12-35); Bilirubin Total* 0.9 mg/dL (0.1-1.5); Blood Urea Nitrogen* 17 mg/dL (7-30); Calcium* 9.5 mg/dL (8.4-10.6); Carbon Dioxide* 28 mmol/L (20-32); Creatinine* 0.6 mg/dL (0.5-1.5); Est. Creatinine Clearance* 58.61; Estimated Glomerular Filt Rate 100 ml/min; Glucose* 93 mg/dL (60-115); Total Protein* 6.5 g/dL (6.0-8.3)
[2024-05-16] MEDS: SODIUM CHLORIDE 0.9 % (FLUSH) 10 ML SYRINGE IVF (10:00)
[2024-05-16] MEDS: 0.9 % SODIUM CHLORIDE 250 ml IV (10:00)
[2024-05-16] MEDS: diphenhydrAMINE 25 MG CAPSULE 50 MG PO (10:14)
[2024-05-16] MEDS: PALONOSETRON 0.25 MG/5 ML inj IV (10:16)
[2024-05-16] MEDS: FAMOTIDINE 10 MG/ML inj 20 MG IVP (10:16)
[2024-05-16] MEDS: dexAMETHasone 20 MG in 0.9 % SODIUM CHLORIDE 100 ml 100 ML 400 MG IVPB (10:27)
[2024-05-16 11:32] VITALS: BP 151/80; PULSE 78; O2SAT 96
[2024-05-16] MEDS: MAG HYDROX/ALUMINUM HYD/SIMETH 30 ML ORAL.SUSP PO (11:57)
[2024-05-16] MEDS: METHYLPREDNISOLONE SOD SUCC 62.5 MG/ML (125) 100 MG IVP (11:58)
[2024-05-23 08:11] LABS: Basophils Percent Auto 0.5 % (0.0-3.0); Hematocrit 39.3 % (33.0-51.0); Hemoglobin* 12.6 gm/dL (12.0-16.0); Immature Granulocytes Pct Auto 0.5 %; Lymphocytes Percent Auto 18.5 % (20-44); Mean Corpuscular HGB Conc 32 gm/dL (32-36); Mean Corpuscular Hemoglobin 30 pg (26-34); Mean Corpuscular Volume 92 fL (80-100); Neutrophils Percent Auto 79.5 % (42.0-72.0); Platelet Count* 214 K/uL (140-440); RDW Coefficient of Variation % 13.7 % (11.5-15.5); Red Blood Count 4.27 m/uL (4.00-5.20)
[2024-05-23 08:42] LABS: Albumin* 4.5 g/dL (3.3-5.0); Slide Review Reflex No; White Blood Count* 1.95 K/uL (4.50-11.00)
[2024-05-23 08:43] LABS: Chloride* 105 mmol/L (96-114); Sodium* 139 mmol/L (135-149)
[2024-05-23 08:45] LABS: Anion Gap 10 mEq/L (7-15); Aspartate Amino Transferase* 68 U/L (12-35); Bilirubin Total* 0.7 mg/dL (0.1-1.5); Carbon Dioxide* 24 mmol/L (20-32); Creatinine* 0.5 mg/dL (0.5-1.5); Est. Creatinine Clearance* 58.61; Estimated Glomerular Filt Rate 104 ml/min
[2024-05-23 08:46] LABS: Alanine Aminotransferase* 166 U/L (4-35); Alkaline Phosphatase* 125 U/L (40-150); Blood Urea Nitrogen* 18 mg/dL (7-30); Calcium* 9.7 mg/dL (8.4-10.6); Glucose* 214 mg/dL (60-115)
[2024-05-23 09:32] LABS: Thyroid Stimulating Hormone* 0.416 uIU/mL (0.270-4.20)
--- NOTE | 2024-05-26 13:10 | ONC.NURNOTE ---
Pt set up for PICC line insertion on 05/30/24 at 10am here in [facility]. Naa to update pt.
--- NOTE | 2024-05-26 13:11 | URNOTE ---
Prior auth is not required for Pembrolizumab (J9271), Doxorubicin (J9000), Cyclophosphamide (J9070) Fosaprpitant (J1453), Palonosetron(j2469) and Udenyca (Q5111). [facility], services are based on medical necessity and follow medicare guidelines.
--- NOTE | 2024-05-26 16:34 | ONC.NURNOTE ---
Call to patient to discuss updated plan of care. -ECHO on 05/27 at 10AM -Patient will have labs and doctor visit as previously planned on 05/30. -If labs are acceptable, PICC line will be placed at 10AM -New start AC+Pembro will follow. I offered patient a chemotherapy teaching appointment 05/27, patient declined. Will plan for chemotherapy teaching on 05/30.
[2024-05-30 08:16] LABS: Basophils Percent Auto 0.7 % (0.0-3.0); Eosinophils Percent Auto 1.9 % (0.0-7.0); Hematocrit 38.3 % (33.0-51.0); Hemoglobin* 12.5 gm/dL (12.0-16.0); Immature Granulocytes Pct Auto 0.2 %; Lymphocytes Percent Auto 27.3 % (20-44); Mean Corpuscular HGB Conc 33 gm/dL (32-36); Mean Corpuscular Hemoglobin 30 pg (26-34); Mean Corpuscular Volume 92 fL (80-100); Monocytes Percent Auto 9.6 % (0.0-11.0); Neutrophils Percent Auto 60.3 % (42.0-72.0); Platelet Count* 292 K/uL (140-440); RDW Coefficient of Variation % 14.5 % (11.5-15.5); Red Blood Count 4.18 m/uL (4.00-5.20); White Blood Count* 4.17 K/uL (4.50-11.00)
[2024-05-30 08:22] LABS: Slide Review Reflex No
[2024-05-30 08:28] LABS: Albumin* 4.2 g/dL (3.3-5.0); Chloride* 106 mmol/L (96-114)
[2024-05-30 08:29] LABS: Potassium* 3.6 mmol/L (3.6-5.1); Sodium* 139 mmol/L (135-149)
[2024-05-30 08:31] LABS: Alkaline Phosphatase* 82 U/L (40-150); Anion Gap 9 mEq/L (7-15); Aspartate Amino Transferase* 29 U/L (12-35); Bilirubin Total* 1.4 mg/dL (0.1-1.5); Blood Urea Nitrogen* 14 mg/dL (7-30); Carbon Dioxide* 24 mmol/L (20-32); Creatinine* 0.6 mg/dL (0.5-1.5); Est. Creatinine Clearance* 58.61; Estimated Glomerular Filt Rate 100 ml/min; Total Protein* 6.5 g/dL (6.0-8.3)
[2024-05-30 08:32] LABS: Alanine Aminotransferase* 69 U/L (4-35); Calcium* 9.2 mg/dL (8.4-10.6); Glucose* 137 mg/dL (60-115)
--- NOTE | 2024-06-01 12:52 | ONC.NURNOTE ---
Surgical Planning - [facility] Pt is scheduled 06/13/24 at [facility] for bilateral mastectomy with RIGHT SLND, with possible LEFT SLND, possible RIGHT and/or LEFT Axillary LND. Surgical team determining scans needed prior to surgery; current discussion is breast MRI vs Pet CT.
--- NOTE | 2024-06-23 15:03 | ONC.NURNOTE ---
Addendum entered by Naa Lundberg 07/07/24 08:38: Patient called to cancel her 07/[address] Perez because she is going to be out of town. Patient states that she has a consult with Dr. Valles on 07/11 to discuss radiation but she is unsure at this time if chemotherapy will be be part of her adjuvant treatment. Patient will see [place] 07/07 and we will touch base the week of 07/11 to schedule follow up. Original Note: Discussed follow up plan with Dr. Perez. Patient originally scheduled to see her in follow up 06/30 to discuss adjuvant treatment plan s/p yadira mastectomy at [place]. Patient does not see [place] [facility] until 07/07. Per Dr. Perez, we will delay her follow up with us until after her [place] appointment. I left a message for patient with this plan.
--- NOTE | 2024-07-18 16:14 | ONC.NURNOTE ---
Addendum entered by Naa Lundberg 07/20/24 10:33: Patient has follow up with her [facility] team 08/03. We will wait to schedule follow up here in [place] until a plan of care is in place. Original Note: Patient called requesting assistance with scheduling her PET/CT. She was originally scheduled to have it done in [place] 07/19 but had to cancel for a family . Patient is scheduled to have her PET/CT 07/28 here at [facility]. I have contacted a member of Dr. Griffin's team at [facility] to assist with scheduling a follow up visit to review results. Nae verbalizes understanding of plan.
--- NOTE | 2024-08-15 13:33 | ONC.NURNOTE ---
Addendum entered and electronically signed by Edie Gao APRN 08/25/24 16:29: Updated Dr. Brenda Perez, [facility] regarding status of patient care, as pt reviewed PET CT results at [place] with her careteam there. Outcome was treatment plan as noted by Naa Lundberg. Dr. Perez has been in communication with Dr. Alfaro at [place]. No further actions required at this time. Original Note: Updated plan of care: Patient will start a 3 week course of radiation today, 08/15. Per [facility]MR, patient has elected to do Signatera testing. [facility] will follow. At this time no follow up scheduled in [facility].
== END 2024-09-20 23:59 | disposition home or self-care (01) ==
LOC: CCIC 08:30
PROVIDERS: Clinical Nurse Specialist; Internal Medicine Hematology & Oncology; PCP Family Medicine; Referring Provider Family Medicine; Visit Provider Physician Assistant
DX: C50.911 Malignant neoplasm of unspecified site of right female breast (principal); Z17.1 Estrogen receptor negative status [ER-]; E03.9 Hypothyroidism, unspecified; Z15.89 Genetic susceptibility to other disease; N84.0 Polyp of corpus uteri
CPT/HCPCS: 36415; 80053; 84443; 85025; 96376; 96413; 96415; 96417; 99199; 99202; 99205; 99211; 99215; G0463; A9270; J1100; J1200; J2469; J2919; J7050; J9045; J9267; J9271; S0028

== ENCOUNTER 2024-07-28 14:41 | Outpatient (CLI) | payer MEDICARE, BC, SELFPAY ==
--- NOTE | 2024-07-28 15:00 | PE_ITS ---
[facility] [address] [address] Phone:?[phone] Fax:?[phone] Referring Physician Information: Edie Gao N.P. [address] [address] Phone:?[phone] Fax:?[phone] Patient:?Adela Winter D.O.B:?1960 Sex:?Female Phone:?[phone] [facility] MRN:?[id number] Exam Date:?07/28/2024 EXAM: PET/CT SCAN MID-ORBITS TO PROXIMAL THIGHS CLINICAL INFORMATION: History of right breast carcinoma. Patient status post bilateral mastectomy since previous 03/11/2024 PET/CT. COMPARISON: PET/CT 03/11/2024 [facility]. MR pelvis 04/04/[address] [facility] abdomen pelvis 03/17/2024 [facility] TECHNICAL INFORMATION: Spiral acquisition of data was obtained from the mid orbits to the proximal thighs with reconstruction of 3.75 mm thick images at 3.[address] data was used for attenuation correction. PET scanning was performed through the same anatomic range 53 minutes following administration of 13.55 mCi of 18-FDG delivered intravenously. The patient's glucose at the time of the injection was 99 mg/dL. PET, CT and PET/CT fusion images are interpreted using a computer viewing workstation. SUV max liver 9.45; BMI normalization method. INTERPRETATION: Head and Neck: No adenopathy or abnormal uptake is identified. Chest: Patient status post bilateral mastectomy since prior study. Minimal low- level FDG uptake of chest wall/post mastectomy site bilaterally presumably postop inflammation/fibrosis, SUV max 5.58. Continued follow-up surveillance is recommended. No pathologic hilar, mediastinal or axillary adenopathy. Abdomen, Pelvis and Proximal Thighs: No liver lesion. No bile duct dilatation. No gastric or small bowel abnormality. Uterine fibroids. Minimal central uterus FDG uptake is noted on prior study, nonspecific finding. CONCLUSION: 1. Patient status post bilateral mastectomy since 03/11/2024 PET/CT study. Minimal FDG uptake related to bilateral mastectomy, likely postop inflammation/fibrosis, although continued follow-up surveillance is recommended. No capo or distant metastatic lesions are identified. 2. Nonspecific endometrial FDG uptake, SUV max 6.13, without significant change since prior PET/CT; nonspecific finding in absence of bleeding. Electronically signed on 07/31/2024 10:42:00 AM by Darvin Parish M.D.
== END 2024-07-28 14:42 | disposition home or self-care (01) ==
PROVIDERS: PCP Family Medicine; Visit Provider Clinical Nurse Specialist
DX: C50.411 Malignant neoplasm of upper-outer quadrant of right female breast (principal)
CPT/HCPCS: 78815; A9552

== ENCOUNTER 2025-04-18 15:00 | Outpatient (RCR) | payer MEDICARE, BC, SELFPAY | END 2025-04-18 15:53 | disposition home or self-care (01) | PROVIDERS: PCP Family Medicine; Visit Provider Physician Assistant | DX: C50.411 Malignant neoplasm of upper-outer quadrant of right female breast (principal); I89.0 Lymphedema, not elsewhere classified; Z51.89 Encounter for other specified aftercare | CPT/HCPCS: 97110; 97140; 97161; 97165; 97530; 97535 ==